=== PATIENT | male | born 1965 | race Caucasian/White ===

== ENCOUNTER → 2023-11-21 10:38 | Outpatient (CLI) | payer BC, SELFPAY ==
--- NOTE | 2023-11-21 | DI.RAD_ITS ---
Exam(s) XR HIP RT COMPLETE AP PELVIS EXAM: XR HIP RT COMPLETE AP PELVIS CLINICAL HISTORY: Rt hip pain, ? DJD. TECHNIQUE: 2D digital imaging was performed. Three views COMPARISON: No exams were available for comparison FINDINGS: BONES: No acute fracture is present. No bony destructive lesion is seen. JOINTS: No dislocation present. Severe narrowing of the superior hip joint space on the right. Promi nent periarticular spurring, sclerosis and subchondral cyst formation. Moderate narrowing of the lef t hip joint space with mild periarticular spurring. The SI joints and pubic symphysis are unremarkab le. SOFT TISSUE: Normal. IMPRESSION: Severe degenerative changes of the right hip. DATA REPOSITORY: RADIATION DOSE DELIVERED:
== END ==
PROVIDERS: Visit Provider Chiropractor
DX: M16.11 Unilateral primary osteoarthritis, right hip (principal)
CPT/HCPCS: 73502

== ENCOUNTER 2024-03-08 05:50 | Outpatient (CLI) | payer BC, SELFPAY ==
[2024-03-08 15:25] LABS: HCT 44.3 % (40.0-50.0); HGB 14.6 g/dL (13.5-17.5); MCH 28.7 pg (27.0-33.0); MCV 87 fL (80-95); MPV 10.8 fL (8.0-11.0); Platelet Count 217 10^3/uL (130-400); RBC 5.09 10^6/uL (4.36-5.78); RDW 12.9 % (11.8-14.1); RDW-SD 41.1 fL; WBC 5.29 10^3/uL (4.4-10.8)
[2024-03-08 16:05] LABS: Anion Gap 5.2 mmol/L (3-11); BUN 17 mg/dL (7-18); CO2 31.8 mmol/L (21.0-32.0); Calcium 9.1 mg/dL (8.5-10.1); Chloride 102 mmol/L (98-107); Estimated GFR 86.16 (mL/min/1.73m2); Glucose 94 mg/dL (74-106); Potassium 4.5 mmol/L (3.5-5.1); Sodium 139 mmol/L (136-145)
== END 2024-03-08 05:51 | disposition home or self-care (01) ==
LOC: LBO 05:50
PROVIDERS: PCP Registered Nurse Critical Care Medicine; Visit Provider Student in an Organized Health Care Education/Training Program
DX: M16.11 Unilateral primary osteoarthritis, right hip (principal); Z01.818 Encounter for other preprocedural examination
CPT/HCPCS: 36415; 80048; 85027

== ENCOUNTER 2024-03-08 14:47 | Outpatient (CLI) | payer BC, SELFPAY ==
--- NOTE | 2024-03-08 13:45 | DI.RAD_ITS ---
Exam(s) XR PELVIS AP EXAM: XR PELVIS AP CLINICAL HISTORY: OA R HIP. TECHNIQUE: 2D digital imaging was performed. Single AP view attempt. COMPARISON: CR XR HIP RT COMPLETE AP PELVIS from 11/21/2023 FINDINGS: BONES: No acute fracture is present. No bony destructive lesion is seen. JOINTS: No dislocation present. Severe narrowing of the right hip joint space, with a [id number] ap pearance. Periarticular spurring. Subchondral cysts. Mild degenerative changes of left hip. SOFT TISSUE: Normal. IMPRESSION: Severe degenerative changes of the right hip. DATA REPOSITORY: RADIATION DOSE DELIVERED:
== END 2024-03-08 14:48 | disposition home or self-care (01) ==
LOC: DIORS 14:48
PROVIDERS: PCP Registered Nurse Critical Care Medicine; Visit Provider Physician Assistant
DX: M16.11 Unilateral primary osteoarthritis, right hip (principal)
CPT/HCPCS: 72170

== ENCOUNTER 2024-03-23 05:46 | Day surgery (SDC) | payer BC, SELFPAY ==
[2024-03-23] VITALS (27 sets, daily range): BP systolic 100–122; BP diastolic 64–91; PULSE 54–80; RESP 9–24; TEMP 36.1–36.6; O2SAT 94–98; BMI 27.8
[2024-03-23] MEDS: Celecoxib 200 MG CAP 400 MG PO (06:40)
[2024-03-23] MEDS: Acetaminophen 500 MG TAB 1000 MG PO (06:41)
[2024-03-23] MEDS: Lactated Ringers 1,000 ML 80 ML IV ×2 (06:50→09:55)
--- NOTE | 2024-03-23 07:13 | DSE_ITS ---
Date of service: 03/23/24 Time of Service: 07:19 Discharge Plan Disposition Patient Disposition: Home Condition: Good Discharge Details Reason For Visit: Right hip DJD Attending Provider: Alejandro Marie Primary Care Provider: Gretchen Simon Home Meds and New Rx's Prescriptions: New acetaminophen 500 mg tablet 1,000 mg PO Q8H PRN Qty: 90 0RF Rx Instructions: Take two tablets up to every 8 hours as needed for pain aspirin 81 mg tablet,delayed release (DR/EC) 81 mg PO BID 30 Days Qty: 60 0RF celecoxib [Celebrex] 200 mg capsule 200 mg PO BID PRNQty: 60 0RF Rx Instructions: Take one tablet twice daily for pain and inflammation pantoprazole 40 mg tablet,delayed release (DR/EC) 40 mg PO DAILY Qty: 14 0RF dexamethasone 4 mg tablet 4 mg PO DAILY Qty: 2 0RF Rx Instructions: Take one tablet once daily for two days docusate sodium [Colace] 100 mg capsule 100 mg PO BID Qty: 30 0RF oxycodone 5 mg tablet 5 mg PO Q6H PRNQty: 12 0RF Rx Instructions: Take one tablet up to every 6 hours as needed for severe postoperative pain Continued atorvastatin [Lipitor] 10 mg tablet 10 mg PO DAILY loratadine [Allergy Relief (loratadine)] 10 mg tablet 10 mg PO DAILY Patient Comments: pt. reports claritin Discontinued aspirin [Adult Aspirin Regimen] 81 mg tablet,delayed release (DR/EC) 81 mg PO DAILY acetaminophen [Arthritis Pain Relief (acetam)] 650 mg tablet extended release 650 mg PO ONCE Discharge Instructions Additional Instructions: Total Hip Discharge Instructions Activity: The most important activity is to walk. You should try to take short walks a few times a day. You have no restrictions on movement or positioning, but do not try to force what you do. You will find some stiffness and weakness with hip flexion (lifting your knee). Do not try to strengthen this too early, continue to practice walking and stairs and this will come. - Outpatient physical therapy can be helpful to help return you to a normal gait and improve your flexibility and strength. This can start around 2 weeks. For some patients, it?s not necessary. Usually this is determined at the time of discharge or at the first post-operative visit. - You should wear the KIANNA hose on both legs for 2 weeks. Dressing: Keep the surgical dressing in place for at least one week. After the first week it may be removed and replace with light gauze and tape or nothing. It may get wet after 3 days but avoid soaking the dressing. If it gets wet, just lightly pat dry. It is important to always keep some gauze between skin folds, especially when you are sitting. Spend some time with the wound exposed when you are lying flat as the incision does wrinkle onto itself. Medications: - You should take Tylenol and an anti-inflammatory Celebrex as your primary pain control medications. If the Celebrex is too expensive or not covered, please call the office for another alternative (Advil/Ibuprofen or Naproxen/Aleve). - You have been prescribed a stronger pain medication Oxycodone for breakthrough pain, take as needed as prescribed. - You have also been prescribed a stomach acid reduction agent Pantoprozole to help reduce stomach acid and reflux. - You have also been prescribed Decadron to help with post-operative nausea and pain. You will take this for two days starting tomorrow. - You will be taking Aspirin 81mg twice a day for DVT prevention unless instructed otherwise. - If you have constipation you should take Colace (which has been prescribed) or Miralax (which is available [id number]). It takes most people 3-4 days to have a bowel movement. Follow-up: 2 weeks If you have any acute concerns or questions, please do not hesitate to contact the office at [phone]. You may contact Dr. Marie with any questions after hours through the hospital at [phone] or on his cell phone at [phone]. Stand Alone Forms: Anesthesia Discharge Inst., [facility] Schultz ([facility]) Referrals: Alejandro Marie MD [ [facility] STAFF PHYSICIAN] - 04/05/24 2:30 pm Equipment/Supplies: Walker Activity:: Activity as Tolerated Remove Dressings/Wound Care:: Do Not Remove Shower/Bathe:: Cover Diet:: As Tolerated Discharge Orders Discharge Orders: Discharge Order (Routine); Ordered 03/23/24 Ordered By: Ivelisse Reyna Discharge Data Discharge Date/Time-TO BE ENTERED AT DEPARTURE: 03/23/24 13:12 DS: Summary Time Spent with Patient providing and/or coordinating discharge services: Less than 30 minutes Status at Discharge Functional status at discharge: uses cane/walker Overall status at discharge: patient is progressing back to baseline Mental Status: mental status grossly normal Speech and Movement: speech and movement normal Mood: congruent mood Affect: normal affect Quality:SDOH Health Related Social Needs: No Data to Display Exam Psych Mental Status: mental status grossly normal Speech and Movement: speech and movement normal Mood: congruent mood Affect: normal affect DS: Data Vitals/I&O Vitals and I&O: Vital Signs Temperature 97.9 F 03/23/24 06:34 Pulse Rhythm Regular 03/23/24 06:34 Respiratory Depth Normal 03/23/24 06:34 Pain Level 0 03/23/24 06:34 Intake & Output 03/22/24 03/22/24 03/23/24 11:59 23:59 11:59 Weight 199 lb 11.821 oz PFSH All Active Problems (Updated 03/23/24 @ 10:31 by Padmini Rowe RN) History of total right hip replacement (Acute 03/23/24) Medical History (Updated 03/23/24 @ 10:31 by Padmini Rowe RN) History of colon polyps History of echocardiogram 01/10/23 Surgical History (Updated 03/23/24 @ 10:31 by Padmini Rowe RN) History of colonoscopy Skier's thumb Bilateral - as 14 and 17 yo History of cardiac cath DOS 01/10/23, 12/13/22 History of mitral valve repair dos 03/18/23 Social History Smoking/Tobacco Use Status: Never Smoking risk assessment performed?: Yes Alcohol Intake: never Drug use: Never Substance use type: does not use Housing: house Do you feel safe at home: Yes Do you feel safe in your relationship?: Yes Additional Social history: unable to assess privately Time Spent with Patient Time Spent with Patient: <45 minutes Time was spent: preparing to see the patient(eg.review tests), ordering medications,tests, procedures and referring, communicating with other health customer care assistant
--- NOTE | 2024-03-23 07:41 | ANES.PREOP_ITS ---
General Info Date of Service Date Performed: 03/23/24 Height: 5 ft 11 in Weight: 90.6 kg Body Mass Index (BMI): 27.8 Surgical Procedure: Operation Date: 03/23/24 07:50 Proposed Procedure Side Surgeon p Hip Total Hip Anterior, ACTIS Right Alejandro Marie MD Meds Allergies and Home Medications Allergies Allergy/AdvReac Type Severity Reaction Status Date / Time Penicillins Allergy unknown Verified 03/23/24 06:14 shellfish derived AdvReac gi upset Verified 03/23/24 06:14 Home Medication Medication Instructions Recorded atorvastatin 10 mg tablet (Lipitor) 10 mg PO DAILY 02/02/24 loratadine 10 mg tablet (Allergy 10 mg PO DAILY 03/22/24 Relief (loratadine)) acetaminophen 500 mg tablet 1,000 mg (2 x 500 mg) PO Q8H PRN 03/23/24 pain #90 tabs aspirin 81 mg tablet,delayed 81 mg PO BID 30 days #60 tabs 03/23/24 release celecoxib 200 mg capsule (Celebrex) 200 mg PO BID PRN #60 caps 03/23/24 dexamethasone 4 mg tablet 4 mg PO DAILY #2 tabs 03/23/24 docusate sodium 100 mg capsule 100 mg PO BID #30 caps 03/23/24 (Colace) oxycodone 5 mg tablet 5 mg PO Q6H PRN #12 tabs 03/23/24 pantoprazole 40 mg tablet,delayed 40 mg PO DAILY #14 tabs 03/23/24 release Current Visit Medications: Current Medications Generic Name Dose Route Start Last Admin Trade Name Freq PRN Reason Stop Dose Admin Acetaminophen 1,000 mg 03/23/24 06:00 03/23/24 06:41 Acetaminophen 500 Mg Tab PO 03/23/24 16:00 1,000 mg PREOP SUNIL Administration Celecoxib 400 mg 03/23/24 06:00 03/23/24 06:40 Celecoxib 200 Mg Cap PO 03/23/24 16:00 400 mg PREOP SUNIL Administration Gabapentin 300 mg 03/23/24 06:00 Gabapentin 300 Mg Cap PO 03/23/24 16:00 PREOP SUNIL Hydromorphone HCl 0.5 mg 03/23/24 07:12 Hydromorphone 2 Mg/Ml Syr IVP 04/22/24 07:11 Q2H PRN PRN Ringer's Solution 1,000 mls @ 80 mls/hr 03/23/24 06:00 03/23/24 06:50 IV 04/21/24 23:59 80 mls/hr INFUSION SUNIL Administration Tranexamic Acid/Sodium Chloride 1,000 mg in 100 mls @ 600 mls/hr 03/23/24 06:00 IVPB 03/23/24 16:00 PREOP SUNIL Cefazolin Sodium/Dextrose 2 gm in 50 mls @ 100 mls/hr 03/23/24 06:00 Ancef Duplex IVPB 03/23/24 16:00 PREOP SUNIL Cefazolin Sodium/Dextrose 1 gm in 50 mls @ 100 mls/hr 03/23/24 08:00 Ancef Duplex IVPB 03/24/24 00:29 Q8H SUNIL IV Miscellaneous Supplies 1 each 03/23/24 06:00 Iv Access IV 04/21/24 23:59 DIRECTED SUNIL Oxycodone HCl 0 mg 03/23/24 07:12 Oxycodone 5 Mg Tab PO 04/22/24 07:11 Q3H PRN PRN Pain Sodium Chloride 0 ml 03/23/24 06:00 Normal Saline Flush 10 Ml Syr IV 04/21/24 23:59 PRN PRN Sodium Chloride 0 ml 03/23/24 06:00 Normal Saline 10 Ml Vial IJ 04/21/24 23:59 DIRECTED PRN Sterile Water 0 ml 03/23/24 06:00 Water,Injection,Sterile 10 Ml Vial IJ 04/21/24 23:59 DIRECTED PRN PFSH Active Problems Active Problems: Problem Status Onset Code Osteoarthritis of right hip M16.11 Medical History Medical History History of colon polyps History of echocardiogram 01/10/23 Surgical History Surgical History History of colonoscopy Skier's thumb Bilateral - as 14 and 17 yo History of cardiac cath DOS 01/10/23, 12/13/22 History of mitral valve repair dos 03/18/23 Tobacco Smoking/Tobacco Use Status: Never Alcohol Alcohol Intake: never Substance Use Substance use: Never Substance use type: does not use Vital Signs and Lab Results Vital Signs Most Recent Vital Signs in EMR: Most Recent Vital Signs Temp 36.6 C 03/23/24 06:34 Lab Results Blood Type / Crossmatch: No Data to Display Complete Blood Count: White Blood Count 5.29 10^3/uL (4.4-10.8) 03/08/24 15:03 Red Blood Count 5.09 10^6/uL (4.36-5.78) 03/08/24 15:03 Hemoglobin 14.6 g/dL (13.5-17.5) 03/08/24 15:03 Hematocrit 44.3 % (40.0-50.0) 03/08/24 15:03 Platelet Count 217 10^3/uL (130-400) 03/08/24 15:03 Complete Metabolic Panel: Sodium 139 mmol/L (136-145) 03/08/24 15:03 Potassium 4.5 mmol/L (3.5-5.1) 03/08/24 15:03 Chloride 102 mmol/L (98-107) 03/08/24 15:03 Carbon Dioxide 31.8 mmol/L (21.0-32.0) 03/08/24 15:03 BUN 17 mg/dL (7-18) 03/08/24 15:03 Creatinine 1.0 mg/dL (0.70-1.30) 03/08/24 15:03 Est GFR (CKD-EPI 2020) 86.16 (mL/min/1.73m2) 03/08/24 15:03 Calcium 9.1 mg/dL (8.5-10.1) 03/08/24 15:03 Glucose 94 mg/dL (74-106) 03/08/24 15:03 Liver Function Panel: No Data to Display Coagulation Panel: No Data to Display Cardiac Panel: 2 No Data to Display Arterial Blood Gas: No Data to Display Venous Blood Gas: No Data to Display Pancreas Panel: No Data to Display Thyroid Panel: No Data to Display Infectious Disease: No Data to Display Blood Cultures: No Data to Display Toxicology Panel: No Data to Display Anesthesia Assessment and Plan Anesthesia History Personal History: No History of Anesthesia Complications Family History: No Family History of Anesthesia Complications Exercise Tolerance Exercise Tolerance: Metabolic Equivalents>4 Pertinent Negatives Pertinent Negatives: No Symptoms of GERD Cardiac & Pulmonary Exam Cardiac Exam: Heart Murmur Present (Mitral Regurg) Pulmonary Exam: Clear Bilateral Breath Sounds Implantable Cardiac Device Does patient have a Pacemaker or an ICD?: No Airway Exam Known Difficult Airway: No Mallampati Class: 2 Mouth Opening: Normal (> 3cm) Thyromental Distance: Greater than 3 cm Neck Range of Motion: Full ROM Neck Circumference: Normal Teeth Condition: Normal Dentition ASA Classification ASA Score: ASA 2 Emergency Case?: No NPO Status NPO Status: NPO Clears >2 hours, Solids >8 hours Anesthesia Plan Resuscitation Status: Full Code Anesthesia Technique: Spinal Anesthesia Airway Planned: Natural Airway Monitors Used: Standard Monitors
[2024-03-23] MEDS: ceFAZolin 2 GM/50 ML BAG IVPB (08:25)
[2024-03-23] MEDS: TRANEXAMIC ACID/SOD. CHL. 1,000 MG/100 ML BAG 600 MG IVPB (08:35)
--- NOTE | 2024-03-23 09:28 | DI.RAD_ITS ---
Exam(s) XR HIP RT IN OR EXAM: XR HIP RT IN OR CLINICAL HISTORY: Osteoarthritis right hip. TECHNIQUE: 2D digital imaging was performed. COMPARISON: No exams were available for comparison FINDINGS: Fluoroscopy provided intraoperatively for right hip arthroplasty. See procedure report for details. IMPRESSION: Radiation exposure index/cumulative dose: Kieransulma= 4.0207 mGy DATA REPOSITORY: RADIATION DOSE DELIVERED:
[2024-03-23] MEDS: fentaNYL 100 MCG/2 ML VIAL IVP (10:18)
--- NOTE | 2024-03-23 11:50 | IN_ITS ---
PT Notes Visit Reasons: Right hip DJD Physical Therapy Day Surgery Initial Evaluation Date: 03/23/2024 Referring Doctor: GAVINO Taylor PT Orders: PT CONSULT: S/p Ortho surgery Precautions: Per Dr. Marie, WBAT on the right LE with AD. Patient Profile/Admitting Diagnosis: Tyrese is a 58-year-old male with degenerative joint disease of the right hip and status post right total hip arthroplasty on postoperative day 0. PMHX: Medical History (Updated 03/05/24 @ 14:27 by Ivelisse Reyna) History of colon polyps History of echocardiogram 01/10/23 Surgical History (Updated 03/08/24 @ 14:20 by Ivelisse Reyna) Skier's thumb Bilateral - as 14 and 17 yoHistory of cardiac cath DOS 01/10/23, 12/13/22 History of mitral valve repair dos 03/18/23 Social History/Home Situation: Lives with in a private home with one-step to enter. Has 20 steps to the second floor of the house for the bedroom use with support on one side, can provide support on the other side as needed Equipment Owned/DME: None Subjective: Happy about how well he is moving compared to before surgery. Denied headache, chest pain, and lightheadedness throughout session. Reported 1?2/10 pain in the right hip at rest and improvement. Objective: General Observation: Resting in bed. TEDS to be legs. Mepilex Ag over surgical incision Mental Status: A&O x 4 Pain: 1?2/10 pain in the right hip at rest and with movement ROM: Right Lower Extremity: Hip flexion WFL. Hip abduction WFL. Knee flexion WFL. Ankle dorsiflexion WFL. Ankle plantarflexion WFL. Left Lower Extremity: Hip flexion WFL. Hip abduction WFL. Knee flexion WFL. Ankle dorsiflexion WFL. Ankle plantarflexion WFL. Strength: Right Lower Extremity: Hip flexors 4/5. Hip abductors 4/5. Knee flexors 5/5. Knee extensors 4/5. Ankle dorsiflexors 5/5. Ankle plantarflexors 5/5. Left Lower Extremity:Hip flexors 5/5. Hip abductors 5/5. Knee flexors 5/5. Knee extensors 5/5. Ankle dorsiflexors 5/5. Ankle plantarflexors 5/5. Sensation: Intact as to pain and light pressure in bilateral lower extremities Bed Mobility/Transfers: Minimal cueing provided for use of B hands as needed for support, movement sequence, AD management, and posture to reduce fall risk and minimize pain report Supine to sit stand by assist Sit to stand stand by assist with FWW Stand to sit stand by assist with FWW Bed to chair stand by assist with FWW Gait: Facilitated safe and correct performance of level surface ambulation covering a distance of 150 feet using front wheel walker with reciprocal swing through heel-toe gait pattern requiring only standby assist and minimal verbal cueing for AD management, safe and correct gait pattern, and posture to minimize pain and reduce fall risk. Stairs: Guided patient with safe and correct negotiation of 3 x 4 inch steps and 2 x 6 inch steps while holding onto bilateral rails with step to gait pattern with minimal verbal cueing for correct movement sequence, hand placement, and posture to reduce fall risk and minimize pain report. Balance: Static Sitting: Normal Dynamic Sitting: Normal Static Standing: Fair Dynamic Standing: Fair Special Tests: Mobility Limitations Standardized Measure [facility] AM-PAC 6 clicks Basic Mobility Inpatient Short Form: Raw Score: 23 CMS Score: 11% deficit Informed Consent/Education: Patient instructed in purpose of PT consult. Packet containing VITALIY exercise protocol has been given to patient. Education and training on initial set of exercises that can be done at home have been completed with patient. Trained patient with correct performance of exercises below to maximize motor control, joint flexibility, soft tissue extensibility of the R hip musculature to facilitate return to independent functional mobility performance. Access Code: [email or web address] URL: [email or web address] Date: 03/23/2024 Prepared by: Brigette Nick Exercises - Gluteal Sets - 1 x daily - 7 x weekly - 1 sets - 10 reps - 5 hold - Supine Heel Slide - 1 x daily - 7 x weekly - 1 sets - 10 reps - 5 hold - Supine Ankle Pumps - 1 x daily - 7 x weekly - 1 sets - 10 reps - 5 hold - Seated March - 1 x daily - 7 x weekly - 1 sets - 10 reps - 5 hold - Seated Long Arc Quad - 1 x daily - 7 x weekly - 1 sets - 10 reps - 5 hold Assessment: Patient requires the use of a front wheeled walker for all mobility ADL performance to maximize independence and reduce fall risk. Patient presents with clinical signs and symptoms consistent with current/admitting diagnoses that have resulted to mobility limitations, gait instability, generalized weakness, and impairment of motor control as demonstrated by the following impairment level findings: 1. Decreased strength to right hip major muscle groups 2. Impaired standing balance Impairments are contributing to the following functional limitations: 1. Inability to safely ambulate without assistive device 2. Increase completion time for mobility ADL performance 3. Increased fall risk Patient is assessed as a [id number] moderate complexity based on the following: History: 58-year-old male with impairment level findings, functional limitations, and past medical history as indicated above Examination: Demonstrable impairment in strength, balance, and mobility level with underlying impairments and functional limitations as documented above Presentation: Evolving Decision Makin moderate comlexity Goals: N/A. PT evaluation and 1-2 treatment sessions only for functional mobility training using recommended AD and for HEP instruction. Plan of Care/Treatment Plan: N/A. PT evaluation and 1-2 treatment session only for functional mobility train ing using recommended AD and for HEP instruction. DISCHARGE RECOMMENDATIONS: Home when medically cleared by orthopedic surgeon. Recommend outpatient PT services in order to optimize functional mobility outcomes and facilitate return to independent community ambulation without an assistive device. TREATMENT CODE/TIME: [id number] x 29 minutes for 1 unit (11: 50?12: 19). Thank you for the opportunity to participate in the care of this patient. Please sign an return this page within 30 days if you agree with the above POC. Thank you! Physician Signature Date [facility] Brigette Nick PT, DPT, CLT [facility] [place], [place]
--- NOTE | 2024-03-23 12:58 | W.ANESPOSTOP ---
Postoperative Evaluation Date, Time and Location Date Performed: 03/23/24 Time Performed: 12:58 Patient Location: Day Surgery Unit Vital Signs Most Recent Imported Vital Signs: Most Recent Vital Signs Temp Pulse Resp BP Pulse Ox 36.2 C L 74 18 115/77 98 03/23/24 12:25 03/23/24 12:25 03/23/24 12:25 03/23/24 12:25 03/23/24 12:25 Pain Score Most Recent Pain Score: Most Recent Pain Score Pain Level 1 03/23/24 12:25 Assessment Mental Status: Awake (Alert & Oriented to Patient Baseline) Airway and Respiratory Function: Patent airway with normal (patient baseline) respiratory exam Cardiovascular Function: Hemodynamically Stable Hydration Status: Adequately Hydrated Nausea & Vomiting: No Nausea or Vomiting Pain: Pain is tolerable per patient Peripheral Nerve Block: Patient did not receive a nerve block
--- NOTE | 2024-03-23 15:39 | W.PM.OP ---
Date of service: 03/23/24 Time of Service: 08:20 Operative Note Operative Note DATE OF PROCEDURE: 03/23/24 PRE-OP DIAGNOSIS: Right Hip Osteoarthritis POST-OP DIAGNOSIS: same PROCEDURE: Right Anterior Total Hip Arthroplasty with Intraoperative Navigation SURGEON: Alejandro Marie RECORD TABULATING CLERK: Ivelisse Reyna ANESTHESIA TYPE: Spinal Refer to Anesthesia Record ESTIMATED BLOOD LOSS: 200 PATHOLOGY: none sent TOURNIQUET TIME: 0 COMPLICATIONS: None Patient was transported to: PACU Patient's condition: stable Implants: 1. Depuy [place] Acetabular Component, 56mm 2. Depuy Acetabular Liner, 24o24up 3. Depuy Actis Standard Collared Femoral Stem, Size 8 4. Depuy Altrx Ceramic Femoral Head, Size 36+5mm Indications: I have seen Tyrese in clinic for symptoms of hip arthritis, confirmed with radiographic findings. He has exhausted nonoperative methods and was having significant limitations in daily function and desired better function and less pain. I discussed the technical details of a hip replacement. I explained the risks of the procedure to include, but not limited to, bleeding, infection, pain, stiffness, fracture, damage to nerves and vessels, damage to muscles and tendons, loosening, instability, leg length inequality, need for repeat procedure, blood clot and cardiopulmonary demise. Despite these risks, Tyrese elected to proceed. Findings: There was significant signs of arthritis throughout the hip. Procedure Description: Tyrese was greeted in the preoperative holding area where the correct side was identified and marked. The consent was reviewed with the patient and signed. The history and physical was updated. All questions were answered. He was taken back to the operating room. A spinal anesthestic was then administered. The feet were wrapped with cast padding and Coban and then placed into the boot liners and then into the boots. Care was taken to protect the skin and make sure the heels were fully down and the boots were stable. The patient was then positioned onto the HANA table. Both legs were held in a neutral position. SCDs were applied. The patient was then slid down onto a peroneal post. Prophylactic antibiotics in the form of Cefazolin were administered. 1g of Tranxemic Acid was given intravenously within 30 minutes of incision. The right leg was then prepped with Chloraprep and draped in a standard fashion. A second prep with Chloraprep was performed prior to placement of a shower-curtain type drape with Iodine impregnated skin protection. A timeout to confirm correct identity, side and site, procedure, allergies, anesthesia, and medical concerns was performed. An obliquely oriented incision was made starting lateral to the ASIS and running distal over the Tensor Fascia [place] (TFL) muscle belly toward the fibular head, approximately 10cm. The skin and soft tissue was dissected sharply, through Cheri?s fascia, and to the fascia of the TFL. With the fascia and superior border of the IT band identified, the fascia was incised with a new knife just above any perforators from the IT band. The TFL muscle belly was bluntly dissected away from the fascia and moved laterally. The fat between TFL and rectus was identified to ensure the dissection was not within the TFL. Blunt dissection created space between abductors and the capsule and retractor was placed over the lateral femoral neck. The fibers of the rectus femoris tendon were identified and these were freed from the anterior capsule. A second cobra retractor was placed around the medial femoral neck. The TFL was further retracted laterally to show the deep fascia. Careful dissection through this layer identified three main crossing vessels of the lateral femoral circumflex. These were cauterized in multiple locations and then cut without any noticeable bleeding. The TFL was further released bluntly from the deep fascia to expose anterior hip capsule and fat The Alberto orthopaedic retractor was then placed beneath the TFL and against sartorius and medial soft tissues to protect and retract the soft tissues. A T-capsulotomy was then performed starting at the superior lateral acetabulum and moving distally to the intertrochanteric ridge. These capsular flaps were tagged with a No. 1 Ethibond and elevated from within. The capsular flaps were released to the shoulder of the lateral neck and to the lesser trochanter to give excellent visualization of the proximal femur. A neck osteotomy was performed using an oscillating saw based on preoperative templates. This cut started in the shoulder and of the lateral neck and exited medially. The saw was at all times directed medially to avoid injury to the greater trochanter. Gross traction was applied to the leg and the osteotomy opened. The femoral head was removed with a corkscrew, making sure to protect the TFL on its exit. Traction was released after head removal. This was measured on the back table to determine the starting reamer size. Portions of the rectus obscuring visualization were minimally elevated off the superior acetabulum. An anterior retractor was placed over the anterior wall between capsule and labrum and attached to the Gripper retraction system. The femur was rotated to 90 degrees and medial capsule was fully released until the lesser trochanter was palpable and visible; the femur was returned to 30 degrees. A posterior retractor was placed similarly between capsule and labrum. This provided excellent visualization. The contents of the cotyloid fossa were removed with electrocautery and the labrum was removed with a knife. There was a notable floor osteophyte. There was significant chondromalacia of the superior acetabulum. Acetabular reaming began with a 52mm reamer. This first reaming was directed anterior to posterior and medial to get down to the true floor. This was inspected and reamed until the true floor was reached. The anterior retractor was then released and entry and exit was provided by traction on the capsular flaps. I then reamed sequentially up to a 56mm reamer where good fit was obtained. The larger reamers were oriented based on anatomical reference of the anterior and lateral todd to ensure proper abduction and anteversion. Positioning and size was confirmed with the fluoroscopy. A 56mm Depuy [place] acetabular component was selected. The acetabulum was reamed around the periphery with the selected acetabular size to prevent a rim fit. The deep tissues were irrigated. The acetabular component was then impacted in a position of about 40-45 degrees of abduction and 15-20 degrees of anteversion, using the patient?s anatomy as the ultimate landmark. Fluoroscopy was used to confirm this. There was excellent rn clinical review of the acetabular component and the inserting handle was removed. The acetabular liner, Depuy [id number] polyethylene liner, was inserted and lined up with the tines of the acetabular component. There was no soft tissue interposition. The liner was then impacted into position and confirmed to be well-seated. A portion of the nolan-articular cocktail was then injected around the acetabulum into the capsule and periosteum. This cocktail consisted of 123mg of Ropivacaine, 0.25mg of Epinephrine, 0.04mg of Clonidine, and 15mg of Ketorolac, diluted to 50cc. The leg was rotated to 120 degrees. Any remaining medial capsule was released until the lesser trochanter was easily palpable. A retractor was placed medially. The lateral capsule was further released into the shoulder to allow access to the greater trochanter. A German retractor was placed over the greater trochanter which allowed the trochanter to flip in front of the capsule for excellent exposure. The leg was brought down into maximal extension and 20 degrees of adduction while ensuring there was no impingement on the acetabulum. Any remnant capsule within the trochanter was released. Piriformis and obturator externis were identified and protected. There was excellent access to the proximal femur. The lateral neck remnant was removed with a rongeur. A blunt canal probe was used to identify the canal and trajectory for later broaching. A box osteotome initiated the broach course. A small curved rasp and a curved curette were used to work laterally. Broaching then began with a starter Actis broach. This was inserted manually around the trochanter and into the canal before mallet blows. The broach was seated to a few millimeters below the cut level based on the neck cut and the preoperative template. Sequential broaching was continued with the [employer] pneumatic broaching device until a tight fit was obtained with good rotational control of the femur. A trial standard neck was inserted along with a +5 trial head. The leg was brought out of extension and adduction and then reduced with traction and internal rotation. The leg was stable anteriorly in a position of 30 degrees of extension and 90 degrees of external rotation. Fluoroscopy was used to ensure there was no fracture and the stem was seated well. Leg lengths were checked with an AP pelvis and pelvic reference points. Eagle Alpha navigation system was used to confirm appropriate positioning and leg length and offset. Once content with the desired offset and leg lengths, the leg was brought back into extension, external rotation and adduction. The periosteum and surrounding tissue was injected with remaining portion of the nolan-articular cocktail. The proximal femur was irrigated as well as the deep tissues. The [employer] Actis standard collared stem, size 8, was then manually inserted into the proximal femur making sure to control rotation. It was then malleted into position with light blows, giving breaks to allow bone expansion and decrease risk of fracture. The selected Depuy Altrx Ceramic Head, size 36+5mm, was then placed onto the clean and dry trunnion and secured with impaction onto the tapered fit. The leg was brought back out of extension and adduction and reduced with traction and internal rotation. Stability was confirmed with no shuck at 90 degrees of external rotation and 30 degrees of extension. No impingement through range of motion arc. Final x-ray images were obtained with fluoroscopy to confirm adequate positioning and no intraoperative fracture. The deep tissues were thoroughly irrigated with Surgiphor, betadine solution. This was allowed to sit in the wound for 3 minutes before being thoroughly irrigated out with normal saline. The capsule was then reapproximated with the previously placed Ethibond sutures. The TFL fascia was finally closed with a No. 2 Stratafix, barbed suture. Deep tissues were then reapproximated with 0 Vicryl and a running 2-0 Vicryl. The skin was closed with a running 4-0 Monocryl in a subcuticular fashion. This was reinforced with skin glue. A Mepilex silver dressing was applied. At the end of the case, all counts were correct. Tyrese was transferred to the hospital bed without difficulty and suffering no apparent complication. Tyrese has a good prognosis. Physical therapy will start today and without restrictions, weight-bearing as tolerated. Aspirin 81mg BID will be used for DVT prophylaxis.
== END 2024-03-23 13:12 | disposition home or self-care (01) ==
PROVIDERS: PCP Registered Nurse Critical Care Medicine; Visit Provider Student in an Organized Health Care Education/Training Program
PROC: (CPT 27130; principal; 2024-03-23 07:30)
DX: M16.11 Unilateral primary osteoarthritis, right hip (principal)
CPT/HCPCS: 27130; 20985; 97162; 73501; C1776; J0690; J1100; J2001; J2250; J2371; J2401; J2405; J2704; J3010

== ENCOUNTER 2024-04-05 15:40 | Outpatient (CLI) | payer BC, SELFPAY ==
--- NOTE | 2024-04-05 15:05 | DI.RAD_ITS ---
Exam(s) XR HIP RT COMPLETE AP PELVIS EXAM: XR HIP RT COMPLETE AP PELVIS INDICATION: 1ST POST OP S/P R VITALIY. COMPARISON: CR XR PELVIS AP from 03/08/2024 XA XR HIP RT IN OR from 03/23/2024 TECHNIQUE: 2D digital imaging was performed. Two views. FINDINGS: There has been no change in the alignment of the right hip prosthesis. There are no abnormal surroun ding bony lucencies. There are mild degenerative changes of the left hip. DATA REPOSITORY: RADIATION DOSE DELIVERED:
== END 2024-04-05 15:41 | disposition home or self-care (01) ==
LOC: DIORS 15:40
PROVIDERS: PCP Registered Nurse Critical Care Medicine; Visit Provider Student in an Organized Health Care Education/Training Program
DX: Z96.641 Presence of right artificial hip joint (principal); M16.12 Unilateral primary osteoarthritis, left hip
CPT/HCPCS: 73502

== ENCOUNTER 2024-12-10 11:12 | Outpatient (CLI) | payer BC, SELFPAY | END 2024-12-10 11:13 | disposition home or self-care (01) | LOC: DI.CARD 11:14 | PROVIDERS: PCP Registered Nurse Critical Care Medicine; Visit Provider Internal Medicine Cardiovascular Disease | CPT/HCPCS: 93010 ==

== ENCOUNTER 2025-03-24 08:06 | Outpatient (CLI) | payer BC, SELFPAY ==
--- NOTE | 2025-03-24 08:00 | RT.EKG_ITS ---
APPROVED REPORT Exam: Resting ECG Reason for Exam: hx of mitral valve repair Patient Location: O HR:60 bpm ECG Measurements Heart Rate 60 AXIS GA 184 P 20 QRSd 94 QRS -26 QT 427 T 74 QTc 427 Conclusion Sinus rhythm...normal P axis, V-rate 50- 99 Borderline left axis deviation...QRS axis (-15,-29) Borderline low voltage, extremity leads...all extremity leads <0.6mV Nondiagnostic ST-T abnormalities
== END 2025-03-24 08:07 | disposition home or self-care (01) ==
LOC: DI.CARD 08:08
PROVIDERS: PCP Nurse Practitioner Family; Visit Provider Internal Medicine Cardiovascular Disease
DX: Z98.890 Other specified postprocedural states (principal); E78.5 Hyperlipidemia, unspecified
CPT/HCPCS: 93010

== ENCOUNTER 2025-03-28 10:45 | Outpatient (CLI) | payer BC, SELFPAY ==
--- NOTE | 2025-03-28 11:11 | DI.RAD_ITS ---
Exam(s) XR HIP RT COMPLETE AP PELVIS EXAM: XR HIP RT COMPLETE AP PELVIS INDICATION: ANNUAL F/U R VITALIY. COMPARISON: CR XR HIP RT COMPLETE AP PELVIS from 04/05/2024 TECHNIQUE: 2D digital imaging was performed. Two views. FINDINGS: Stable alignment of the right hip prosthesis. There are no abnormal surrounding lucencies. There are mild degenerative changes of the left hip. DATA REPOSITORY: RADIATION DOSE DELIVERED:
== END 2025-03-28 10:46 | disposition home or self-care (01) ==
LOC: DIORS 10:45
PROVIDERS: PCP Nurse Practitioner Family; Visit Provider Student in an Organized Health Care Education/Training Program
DX: Z96.641 Presence of right artificial hip joint (principal)
CPT/HCPCS: 73502